=== PATIENT | female | born 1995 ===

== ENCOUNTER 2024-08-04 08:57 | Outpatient (CLI) | payer OTHER ==
[2024-08-05] MEDS ORDERED: ZOFRAN8 MG (19:22)
[2024-08-05] MEDS ORDERED: PRENATABS RX T1 EACH (19:22)
== END 2024-08-04 09:01 | disposition home or self-care (01) ==
LOC: PRENATAL 08:57
PROVIDERS: ATTEND Obstetrics & Gynecology Maternal & Fetal Medicine
DX: O36.80X0 Pregnancy with inconclusive fetal viability, not applicable or unspecified (principal); Z36.82 Encounter for antenatal screening for nuchal translucency; Z14.8 Genetic carrier of other disease; O34.10 Maternal care for benign tumor of corpus uteri, unspecified trimester; Z3A.12 12 weeks gestation of pregnancy

== ENCOUNTER 2024-08-05 19:13 | Emergency (ER) | payer OTHER ==
[~2024-08-05] VITALS: Ht 152.4 cm; Wt 61.2 kg
[2024-08-05] MEDS ORDERED: PRENATABS RX T1 EACH (19:22)
[2024-08-05] MEDS ORDERED: ZOFRAN8 MG (19:22)
[2024-08-05 20:11] LABS: HEMOGLOBIN 11.2 g/dL (12.0-15.00); MEAN CELL VOLUME 77.9 fL (80.00-100.00); MEAN CORPUSCULAR HEMOGLOBIN 26.3 pg (27.00-32.0); MEAN CORPUSCULAR HGB CONC 33.8 g/dl (32.0-36.0); PLATELET COUNT 217 K/uL (150-450); RED BLOOD COUNT 4.24 M/uL (4.00-6.00); RED CELL DISTRIBUTION WIDTH 17.9 % (11.5-14.5)
[2024-08-05 20:13] LABS: PH,URINE 5.5 (5.0-8.0); URINE APPEARANCE Clear; URINE BILIRRUBIN Negative (NEGATIVE); URINE BLOOD Large; URINE COLOR Yellow; URINE GLUCOSE Negative (NEGATIVE); URINE KETONE Negative (NEGATIVE); URINE LEUKOCYTE Negative; URINE NITRATE Negative; URINE PROTEIN Negative (NEGATIVE); URINE UROBILINOGEN 0.2 E.U./dl
[2024-08-05 20:16] LABS: URINE BACTERIA 90.5 uL (0.0-1933); URINE EPITHELIAL CELLS 5.2 uL (0.0-38.8); URINE WBC 5.2 uL (0.0-23.2)
[2024-08-05 20:45] LABS: URINE CAST 0.14 uL (0.0-1.40)
== END 2024-08-05 21:34 | disposition home or self-care (01) ==
LOC: ER 19:13
PROVIDERS: General Practice
DX: O20.9 Hemorrhage in early pregnancy, unspecified (principal); O43.891 Other placental disorders, first trimester; Z3A.13 13 weeks gestation of pregnancy

== ENCOUNTER → 2024-09-23 14:13 | Outpatient (CLI) | payer OTHER ==
[~2024-09-23 14:13] MED LIST: PRENATABS RX T1 EACH; ZOFRAN8 MG
== END | disposition home or self-care (01) ==
LOC: PRENATAL 14:13
PROVIDERS: ATTEND Obstetrics & Gynecology Maternal & Fetal Medicine
DX: O44.00 Complete placenta previa NOS or without hemorrhage, unspecified trimester (principal); O34.10 Maternal care for benign tumor of corpus uteri, unspecified trimester; Z3A.19 19 weeks gestation of pregnancy

== ENCOUNTER → 2024-11-22 09:53 | Outpatient (CLI) | payer OTHER | END | disposition home or self-care (01) | LOC: PRENATAL 09:53 | PROVIDERS: ATTEND Obstetrics & Gynecology Maternal & Fetal Medicine | DX: O26.849 Uterine size-date discrepancy, unspecified trimester (principal); O36.8199 Decreased fetal movements, unspecified trimester, other fetus; O28.5 Abnormal chromosomal and genetic finding on antenatal screening of mother; O34.10 Maternal care for benign tumor of corpus uteri, unspecified trimester; O99.019 Anemia complicating pregnancy, unspecified trimester; Z3A.28 28 weeks gestation of pregnancy ==

== ENCOUNTER → 2024-12-31 | Outpatient (CLI) | payer OTHER | END | disposition home or self-care (01) | LOC: PRENATAL 15:35 | PROVIDERS: ATTEND Obstetrics & Gynecology Maternal & Fetal Medicine | DX: O26.849 Uterine size-date discrepancy, unspecified trimester (principal); O36.8199 Decreased fetal movements, unspecified trimester, other fetus; O28.5 Abnormal chromosomal and genetic finding on antenatal screening of mother; O34.10 Maternal care for benign tumor of corpus uteri, unspecified trimester; O99.019 Anemia complicating pregnancy, unspecified trimester; Z3A.33 33 weeks gestation of pregnancy ==

== ENCOUNTER 2025-02-08 13:15 | Inpatient (IN) | payer OTHER ==
[~2025-02-08] VITALS: Ht 157.5 cm; Wt 73.9 kg
[2025-02-15 07:53] VITALS: BP 122/68
[2025-02-15] MEDS ORDERED: MISOPROSTOL 25 MCG/4 ML GEL.W.APPL VAG ONE ×3 (08:15→17:15)
[2025-02-15] MEDS ORDERED: AMPICILLIN SODIUM 2,000 MG VIAL IV ONE (08:30)
[2025-02-15] MEDS ORDERED: RINGERS SOLUTION,LACTATED 1,000 ML IV SCH (08:30)
[2025-02-15 08:34] LABS: BASO % 0.4 % (0.1-1.2); EOS # 0.19 (0.04-0.54); EOS % 1.9 % (0.7-7.0); LYMPH # 1.17 (1.18-3.74); LYMPH % 11.6 % (19.3-53.1); MEAN PLATELET VOLUME 10.70 fl (9.4-12.4); MONO # 0.83 (0.24-0.82); MONO % 8.2 % (4.7-12.5); NEUT # 7.64 (1.56-6.13); NEUT % 75.9 % (34.0-71.1); RED CELL DISTRIBUTION WIDTH 13.3 % (11.6-14.4)
[2025-02-15 08:45] LABS: URINE APPEARANCE Clear; URINE BILIRRUBIN Negative (NEGATIVE); URINE BLOOD Negative; URINE COLOR Yellow; URINE GLUCOSE Negative (NEGATIVE); URINE KETONE Negative (NEGATIVE); URINE LEUKOCYTE Trace; URINE NITRATE Negative; URINE PROTEIN Negative (NEGATIVE); URINE UROBILINOGEN 0.2 E.U./dl
[2025-02-15 08:46] LABS: URINE BACTERIA 207.6 uL (0.0-1933); URINE EPITHELIAL CELLS 43.1 uL (0.0-38.8); URINE WBC 22.2 uL (0.0-23.2)
[2025-02-15 08:59] LABS: INR 0.94
[2025-02-15 09:04] LABS: URINE CAST 0.00 uL (0.0-1.40); URINE RBC 1.6 uL (0.0-20.8)
[2025-02-15] MEDS ORDERED: AMPICILLIN SODIUM 1,000 MG VIAL IV SCH (12:00)
[2025-02-15 12:32] VITALS: BP 107/71
[2025-02-15 15:40] VITALS: BP 134/86
[2025-02-15 19:56] VITALS: BP 119/72
[2025-02-15] MEDS ORDERED: TERBUTALINE SULFATE 1 MG/ML AMPUL SUBCUTANEO ONE (22:00)
[2025-02-15] MEDS ORDERED: ERYTHROMYCIN BASE OPHT 1GM EACH TUBE OP ONE (22:11)
[2025-02-15] MEDS ORDERED: OXYTOCIN 10 UNITS/ML VIAL ONE (22:11)
[2025-02-16] MEDS ORDERED: AMPICILLIN SODIUM 1,000 MG VIAL ONE (00:15)
[2025-02-16] MEDS ORDERED: MORPHINE SULFATE 4 MG/ML CARTRIDGE IV SCH (01:00)
[2025-02-16] MEDS ORDERED: KETOROLAC TROMETHAMINE 60 MG VIAL IM ONE (04:00)
[2025-02-16] MEDS ORDERED: OxyCODONE HCL 5 MG TABLET (ROXICODONE) PO SCH (05:00)
[2025-02-16 06:18] VITALS: BP 115/74
[2025-02-16 06:47] LABS: BASO % 0.2 % (0.1-1.2); EOS # 0.04 (0.04-0.54); EOS % 0.3 % (0.7-7.0); LYMPH # 0.96 (1.18-3.74); LYMPH % 7.7 % (19.3-53.1); MEAN PLATELET VOLUME 10.40 fl (9.4-12.4); MONO # 0.61 (0.24-0.82); MONO % 4.9 % (4.7-12.5); NEUT # 10.68 (1.56-6.13); NEUT % 86.0 % (34.0-71.1); RED CELL DISTRIBUTION WIDTH 13.2 % (11.6-14.4)
[2025-02-16] MEDS ORDERED: PNV,CALCIUM 72/IRON/FOLIC ACID 1 TAB TABLET PO SCH (08:00)
[2025-02-16] MEDS ORDERED: SIMETHICONE 125 MG CAPSULE PO SCH (08:00)
[2025-02-16] MEDS ORDERED: DOCUSATE SODIUM 100MG CAP PO SCH (08:00)
[2025-02-16 08:13] VITALS: BP 107/73
[2025-02-16 14:00] VITALS: BP 101/64
[2025-02-16 16:00] VITALS: BP 97/64
[2025-02-16] MEDS ORDERED: OXYTOCIN 10 UNITS/ML VIAL IV ONE (22:15)
[2025-02-16] MEDS ORDERED: ERYTHROMYCIN BASE OPHT 1GM EACH TUBE OP ONE (22:15)
[2025-02-17 02:54] VITALS: BP 112/75
[2025-02-17 08:00] VITALS: BP 107/71
[2025-02-17 16:38] VITALS: BP 112/74
[2025-02-18 02:24] VITALS: BP 111/71
[2025-02-18 06:05] VITALS: BP 108/73
[2025-02-18 08:00] VITALS: BP 98/63
[2025-02-18] MEDS ORDERED: PRENATAL VITAM1 EAC5 PO (14:07)
== END 2025-02-18 14:41 | disposition home or self-care (01) | DRG 788 ==
LOC: OB/GYN 02-15 07:30 → LDR 02-15 07:30 → OB/GYN 02-15 13:15
PROVIDERS: ADMIT Obstetrics & Gynecology; ATTEND Obstetrics & Gynecology
PROC: 4A1HXCZ Monitoring of Products of Conception, Cardiac Rate, External Approach (ICD-10-PCS; 2025-02-15)
PROC: 10D00Z1 Extraction of Products of Conception, Low, Open Approach (ICD-10-PCS; principal; 2025-02-15 23:00)
DX: O36.8130 Decreased fetal movements, third trimester, not applicable or unspecified (principal); O32.8XX0 Maternal care for other malpresentation of fetus, not applicable or unspecified; Z3A.40 40 weeks gestation of pregnancy; Z37.0 Single live birth